=== PATIENT | female | born 1955 | race Caucasian/White ===

== ENCOUNTER 2020-04-09 08:00 | Outpatient (NON) | payer MEDICARE, MEDICAID, SELFPAY ==
[2020-04-10 13:37] LABS: SARS-CoV-2 RNA PCR Negative
== END 2020-04-09 08:01 ==
PROVIDERS: Specialist
DX: Z01.818 Encounter for other preprocedural examination (principal); Z11.59 Encounter for screening for other viral diseases
CPT/HCPCS: 87635; C9803; U0003